=== PATIENT | male | born 1945 | race Caucasian/White ===

== ENCOUNTER 2022-03-10 18:23 | Observation (INO) ==
[2022-03-10 18:41] LABS: ABS Eosinophils 0.1 10^3/ul (0-0.6); ABS Lymphocytes 1.4 10^3/ul (1.0-4.8); ABS Monocytes 0.9 10^3/ul (0-0.8); ABS Neutrophils 2.5 10^3/ul (1.5-7.7); Hematocrit 44 % (42-52); Hemoglobin 15.1 g/dL (14.0-18.0); Lymphocyte % 28.5 %; Mean Corpuscular HGB Conc 34 g/dL (31-36); Mean Corpuscular Hemoglobin 35 pg (27-31); Mean Corpuscular Volume 104 fL (80-94); Mean Platelet Volume 8.8 fL (7.4-10.4); Platelet Count 174 10^3/uL (150-450); Red Blood Count 4.28 10^6 /uL (4.18-5.48); Red Cell Distribution Width 13 % (10-15); White Blood Count 4.9 10^3/uL (3.5-10.8)
[2022-03-10 18:48] LABS: INR 1.04 (0.89-1.11)
[2022-03-10 19:13] LABS: Albumin/Globulin Ratio 1.3 (1-3); Calcium 9.5 mg/dL (8.6-10.3); Potassium 4.2 mmol/L (3.5-5.0); Total Bilirubin 0.6 mg/dL (0.2-1.0); eGFR CKD-EPI 85.1 (>60)
[2022-03-10 20:12] LABS: High Sensitivity Troponin 1 Hr 8 pg/mL (<20)
[2022-03-10] MEDS ORDERED: Lactated Ringers 1000 ml BAG 1,000 ML IV ONE (21:06)
[2022-03-10] MEDS ORDERED: Enoxaparin 80 MG/0.8 ML SYR SUBCUT ONE (21:26)
[2022-03-10 21:43] LABS: TSH Ultra Thyroid Stim Horm 2.9 mcIU/mL (0.34-5.60)
[2022-03-11 06:37] LABS: Calcium 8.7 mg/dL (8.6-10.3); Magnesium 1.8 mg/dL (1.9-2.7); Potassium 4.7 mmol/L (3.5-5.0); eGFR CKD-EPI 73.6 (>60)
[2022-03-11] MEDS ORDERED: Magnesium Sulfate 2 gm BAG 2 GM/50 ML BAG IVPB ONE (08:24)
[2022-03-11 09:29] LABS: C Reactive Protein 11.7 mg/L (<8.01)
[2022-03-11] MEDS ORDERED: Iohexol 350 (CONTRAST) 500 ML MDV IV ONE (10:52)
[2022-03-11 12:45] VITALS: BP 116/67
== END 2022-03-11 15:20 | disposition home or self-care (01) ==
LOC: EDHOLD 18:23 → ED 18:23 → MEDTELE 03-11 00:44
PROVIDERS: ADMIT Internal Medicine; ATTEND Internal Medicine